=== PATIENT | female | born 1990 | race American Indian/Alaskan Native ===

== ENCOUNTER 2018-06-25 00:10 | Emergency (ER) | payer MEDICAID, OTHER, SELFPAY ==
[2018-06-25 00:22] VITALS: BP 127/84; PULSE 104; RESP 18; TEMP 36.8; O2SAT 98; BMI 28.1
[2018-06-25 00:52] LABS: Add Manual Diff / Slide Review NO; Basophils Percent Auto 0.8 % (0-2); Hemoglobin 14.7 g/dL (12.0-16.0); Lymphocytes Percent Auto 30.8 % (25-40); Mean Corpuscular HGB Conc 34.9 % (30-36); Mean Corpuscular Hemoglobin 30.5 PG (26-34); Mean Corpuscular Volume 87.4 fL (80-100); Monocytes Percent Auto 6.4 % (3-14); Neutrophils Absolute Auto 4900 /uL (3000-5900); Platelet Count 300 X10^3/uL (150-400); Red Blood Cell Count 4.81 X10^6/uL (4.0-5.2); Red Cell Distribution Width 12.3 % (11.6-14.8); White Blood Cell Count 8.2 X10^3/uL (4.5-11.0)
--- NOTE | 2018-06-25 00:56 | ED.PSYCH ---
HPI - Psych General Chief Complaint: Psychiatric Symptoms Stated Complaint: wants to be seen for mental health reasons Time Seen by Provider: 06/25/18 00:15 Source: patient Mode of arrival: ambulatory Limitations: no limitations History of Present Illness HPI Narrative: 27-year-old nonsmoking female with history of bipolar presents to the emergency department with a chief complaint being out of her Paxil for the past 5 days and forgetting to take her lamotrigine for the past 5 or 6 days as well. She states that she feels ?weird ?. She feels a bit unstable in unsteady and complains of some nausea and vague headache. She denies chest pain or shortness of breath. She denies any vomiting or diarrhea. She was diagnosed with bipolar about 1 year ago and has never missed any of her medications. She has multiple prior hospitalizations for psychiatric reasons including suicidal ideations which started at about age 12. She is currently under the care [facility] She denies any suicidal or homicidal ideations. She is able to care for herself at home. She does not have access to a firearm. She denies any new stressors at home and has been eating and sleeping without difficulty. she feels depressed and a bit out of sorts MD complaint: feels depressed Onset (ago): day(s) Duration: constant History of same: Yes Relieving factors: none Exacerbating factors: none Context: not taking psychiatric medications Associated psychiatric symptoms: depression Associated symptoms: headache and nausea Treatments prior to arrival: none Related Data Home Medications Medication Instructions Recorded Confirmed buprenorphine-naloxone [Suboxone] 1 danae SUBLINGUAL DAILY #0 08/24/17 06/25/18 ibuprofen 800 mg PO TIDP PRN #0 08/24/17 06/25/18 lamotrigine [Lamictal XR] 250 mg PO DAILY #0 08/24/17 06/25/18 multivitamin [Multiple Vitamins] 1 tab PO QDAY #0 08/24/17 06/25/18 paroxetine HCl 30 mg PO QDAY #0 08/24/17 06/25/18 cetirizine 10 mg PO DAILY 06/25/18 06/25/18 Previous Rx's Medication Instructions Recorded paroxetine HCl [Paxil] 10 mg PO DAILY #20 tab 06/25/18 Allergies Allergy/AdvReac Type Severity Reaction Status Date / Time No Known Drug Allergies Allergy Verified 06/25/18 00:39 Review of Systems Review of Systems All systems reviewed & are unremarkable except as noted in HPI and below Constitutional Denies chills, Denies fever(s), Reports headache(s), Denies lethargy and Reports weakness Eyes Denies change in vision, Denies eye discharge, Denies irritation and Denies loss of vision ENT Ears, Nose, Mouth, and Throat: Denies change in voice, Reports headache(s), Denies neck pain and Denies sore throat Cardiovascular Denies chest pain, Denies irregular heart rhythm, Denies lightheadedness, Denies palpitations, Denies dyspnea, Denies dyspnea on exertion and Denies orthopnea Respiratory Denies cough, Denies dyspnea, Denies dyspnea on exertion and Denies wheezing Gastrointestinal Gastrointestinal: Denies abdominal pain, Denies change in bowel habits, Denies diarrhea, Denies nausea and Denies vomiting Genitourinary Denies hematuria, Denies flank pain, Denies urinary incontinence and Denies urinary urgency Musculoskeletal Denies neck pain Integumentary/Breasts Denies pruritus, Denies erythema, Denies rash and Denies wounds Neurologic Denies confusion, Reports headache(s), Denies loss of vision and Reports weakness Psychiatric Denies anxiety, Reports change in appetite, Denies confusion, Reports depression, Denies homicidal ideation and Denies suicidal ideation Endocrine Denies palpitations Hematologic/Lymphatic Denies easy bruising Allergic/Immunologic Denies wheezing PFSH Medical History Bipolar 1 disorder (Acute) Social History Smoking Status: Never smoker Exam Narrative Exam Narrative: GENERAL: This is a well-nourished, well-developed patient, in mild distress. Flat affect but making good eye contact and speaking clearly without slurred words. She is well kempt HEAD: Atraumatic. Normocephalic. No temporal or scalp tenderness. EYES: Pupils equal round and reactive. Extraocular motions intact. No scleral icterus. No injection or drainage. ENT: Nose without bleeding, purulent drainage or septal hematoma. Throat without erythema, tonsillar hypertrophy or exudate. Uvula midline. Airway patent. NECK: Trachea midline. No JVD or lymphadenopathy. Supple, nontender, no meningeal signs. CARDIOVASCULAR: Regular rate and rhythm without murmurs, gallops, or rubs. RESPIRATORY: Clear to auscultation. Breath sounds equal bilaterally. No wheezes, rales, or rhonchi. GASTROINTESTINAL: Abdomen soft, non-tender, nondistended. No hepato-splenomegaly, or palpable masses. No guarding. EXTREMITIES: No clubbing, cyanosis, or edema. No joint tenderness, effusion, or edema noted. BACK: Nontender without deformity or crepitance. No flank tenderness. NEURO: AOx3. SKIN: No rash or erythema. Initial Vital Signs Initial Vital Signs: Vital Signs Temperature 98.2 F 06/25/18 00:22 Pulse Rate 104 H 06/25/18 00:22 Respiratory Rate 18 06/25/18 00:22 Blood Pressure 127/84 06/25/18 00:22 Pulse Oximetry 98 06/25/18 00:22 Course Orders Ordered: ED Orders 06/25/18 00:40 Complete Blood Count AUTO DIFF Stat Comprehensive Metabolic Panel Stat Ethanol (ETOH) Stat Thyroid Stimulating Hormone Stat 06/25/18 01:30 Urine Drug Screen, Rapid Stat Discontinued Medications Paroxetine HCl (Paxil) 20 mg PO DAILY ANY Paroxetine HCl (Paxil) 20 mg PO DAILY [facility] Last Admin: 06/25/18 01:04 Dose: 20 mg Reevaluation(s) Reevaluation #1: patient has taken both of her medications and has been observed for over an hour. She says she feels much better and has a plan to stay on her meds. She feels safe going home and denies any suicidal or homicidal ideation. She currently refuses contact with [facility], but has accepted receiving their contact info on [place] paperwork. She would prefer to follow up with her providers and will contact on tuesday. Vital Signs - 8 hr 06/25/18 00:22 06/25/18 02:22 Temperature 98.2 F Pulse Rate 104 H 89 Respiratory Rate 18 16 Blood Pressure 127/84 110/70 Pulse Oximetry 98 98 MDM - Psych Lab Data Result diagrams: 06/25/18 00:40 06/25/18 00:40 Lab Results 06/25/18 06/25/18 06/25/18 Range/Units 00:40 00:40 00:40 WBC 8.2 (4.5-11.0) X10^3/uL RBC 4.81 (4.0-5.2) X10^6/uL Hgb 14.7 (12.0-16.0) g/dL Hct 42.0 (36-46) % MCV 87.4 (80-100) fL MCH 30.5 (26-34) PG MCHC 34.9 (30-36) % RDW 12.3 (11.6-14.8) % Plt Count 300 (150-400) X10^3/uL Neut % (Auto) 60.0 (50-75) % Lymph % (Auto) 30.8 (25-40) % [place] % (Auto) 6.4 (3-14) % Eos % (Auto) 2.0 (2-4) % Baso % (Auto) 0.8 (0-2) % Neut # (Auto) 4900 (6369-3026) /uL Sodium 145 (137-145) mmol/L Potassium 3.6 (3.4-5.1) mmol/L Chloride 103 (98-107) mmol/L Carbon Dioxide 28 (22-32) mmol/L BUN 11 (7-17) mg/dL Creatinine 0.50 L (0.52-1.04) mg/dL Estimated GFR > 60.0 (>60) mL/min BUN/Creatinine Ratio 22.0 (6-22) Glucose 90 (70-100) mg/dL Calcium 9.1 (8.4-10.2) mg/dL Total Bilirubin 0.4 (0.2-1.3) mg/dL AST 23 (14-36) IU/L ALT 25 (9-52) IU/L Alkaline Phosphatase 99 (38-126) U/L Total Protein 7.9 (6.3-8.2) g/dL Albumin 4.7 (3.5-5.0) g/dL Globulin 3.2 (1.7-4.1) g/dL Albumin/Globulin Ratio 1.5 (1.0-2.8) TSH 2.38 (0.47-4.68) uIU/mL Urine Opiates Screen (Negative) Ur Oxycodone Screen (Negative) Urine Methadone Screen (Negative) Ur Barbiturates Screen (Negative) U Tricyclic Antidepress (Negative) Ur Phencyclidine Scrn (Negative) Ur Amphetamines Screen (Negative) U Methamphetamines Scrn (Negative) Ur MDMA Scrn (Ecstasy) (Negative) U Benzodiazepines Scrn (Negative) Urine Cocaine Screen (Negative) U Marijuana (THC) Screen (Negative) Ethyl Alcohol < 10 mg/dL 06/25/18 Range/Units 01:30 WBC (4.5-11.0) X10^3/uL RBC (4.0-5.2) X10^6/uL Hgb (12.0-16.0) g/dL Hct (36-46) % MCV (80-100) fL MCH (26-34) PG MCHC (30-36) % RDW (11.6-14.8) % Plt Count (150-400) X10^3/uL Neut % (Auto) (50-75) % Lymph % (Auto) (25-40) % [place] % (Auto) (3-14) % Eos % (Auto) (2-4) % Baso % (Auto) (0-2) % Neut # (Auto) (3947-6130) /uL Sodium (137-145) mmol/L Potassium (3.4-5.1) mmol/L Chloride (98-107) mmol/L Carbon Dioxide (22-32) mmol/L BUN (7-17) mg/dL Creatinine (0.52-1.04) mg/dL Estimated GFR (>60) mL/min BUN/Creatinine Ratio (6-22) Glucose (70-100) mg/dL Calcium (8.4-10.2) mg/dL Total Bilirubin (0.2-1.3) mg/dL AST (14-36) IU/L ALT (9-52) IU/L Alkaline Phosphatase (38-126) U/L Total Protein (6.3-8.2) g/dL Albumin (3.5-5.0) g/dL Globulin (1.7-4.1) g/dL Albumin/Globulin Ratio (1.0-2.8) TSH (0.47-4.68) uIU/mL Urine Opiates Screen Negative (Negative) Ur Oxycodone Screen Positive H (Negative) Urine Methadone Screen Negative (Negative) Ur Barbiturates Screen Negative (Negative) U Tricyclic Antidepress Positive H (Negative) Ur Phencyclidine Scrn Negative (Negative) Ur Amphetamines Screen Negative (Negative) U Methamphetamines Scrn Negative (Negative) Ur MDMA Scrn (Ecstasy) Negative (Negative) U Benzodiazepines Scrn Positive H (Negative) Urine Cocaine Screen Negative (Negative) U Marijuana (THC) Screen Negative (Negative) Ethyl Alcohol mg/dL Urine Dip Bedside Urine Glucose Negative Bedside Urine Bilirubin - Negative Bedside Urine Ketone +/- 5 Urine Specific [place] 1.025 Bedside Urine Occult Blood +/- Bedside Urine pH 6.0 Bedside Urine Protein +/- 15 Bedside Urine Urobilinogen - Negative Bedside Urine Nitrite - Negative Bedside Urine Leukocytes - Negative Esterase Discharge Plan Departure Patient Disposition: Home Clinical Impression: Bipolar 1 disorder, Nonadherence to medication Discharge Date/Time: 06/25/18 02:23 Interventions: ED Discharge Assessment Last Done: 06/25/18 02:22 Instructions: DI for Bipolar Disorder Activity Restrictions/Additional Instructions: *You have been diagnosed with [ bipolar disorder and medication noncompliance ] *What to do: *Take medications as directed *Follow up with yourmental health provider in 2-3 days, call for an appointment. Let them know you were seen in the Emergency Department and that we ask that you be seen in follow up *Return to ER if you should have any new, worsening or concerning symptoms *There are a few ways you may get anonymous and mental health support 1. Navigate your web browser to [email or web address] where there is a chat session available 2. Text Eduar to [phone] Prescriptions: New paroxetine HCl [Paxil] 10 mg tablet 10 mg PO DAILY Qty: 20 RF: 0 No Action paroxetine HCl 30 MG tablet 30 mg PO QDAY Qty: 0 RF: 0 lamotrigine [Lamictal XR] 200 MG tablet extended release 24hr 250 mg PO DAILY Qty: 0 RF: 0 multivitamin [Multiple Vitamins] 1 EACH tablet 1 tab PO QDAY Qty: 0 RF: 0 ibuprofen 800 MG tablet 800 mg PO TIDP PRN (Reason: Pain, Moderate) Qty: 0 RF: 0 buprenorphine-naloxone [Suboxone] 4 MG/1 MG film 1 dnaae Sublingual DAILY Qty: 0 RF: 0 cetirizine 10 mg Tablet 10 mg PO DAILY RF: 0 [facility]errals[facility] [[facility]]
[2018-06-25 01:00] LABS: Alanine Aminotransferase 25 IU/L (9-52); Albumin 4.7 g/dL (3.5-5.0); Albumin Globulin Ratio 1.5 (1.0-2.8); Alkaline Phosphatase 99 U/L (38-126); Aspartate Aminotransferase 23 IU/L (14-36); Bilirubin Total 0.4 mg/dL (0.2-1.3); Blood Urea Nitrogen 11 mg/dL (7-17); Calcium 9.1 mg/dL (8.4-10.2); Carbon Dioxide 28 mmol/L (22-32); Chloride 103 mmol/L (98-107); Estimated Glomerular Filt Rate > 60.0 mL/min (>60); Ethanol (ETOH) < 10 mg/dL; Globulin 3.2 g/dL (1.7-4.1); Glucose 90 mg/dL (70-100); HEMOLYSIS < 15 (0-50); Potassium 3.6 mmol/L (3.4-5.1); Sodium 145 mmol/L (137-145); Total Protein 7.9 g/dL (6.3-8.2)
--- NOTE | 2018-06-25 01:00 | ED_ITS ---
HPI - Psych General Chief Complaint: Psychiatric Symptoms Stated Complaint: wants to be seen for mental health reasons Time Seen by Provider: 06/25/18 00:15 Source: patient Mode of arrival: ambulatory Limitations: no limitations History of Present Illness HPI Narrative: 27-year-old nonsmoking female with history of bipolar presents to the emergency department with a chief complaint being out of her Paxil for the past 5 days and forgetting to take her lamotrigine for the past 5 or 6 days as well. She states that she feels ?weird ?. She feels a bit unstable in unsteady and complains of some nausea and vague headache. She denies chest pain or shortness of breath. She denies any vomiting or diarrhea. She was diagnosed with bipolar about 1 year ago and has never missed any of her medications. She has multiple prior hospitalizations for psychiatric reasons including suicidal ideations which started at about age 12. She is currently under the care [facility]. She denies any suicidal or homicidal ideations. She is able to care for herself at home. She does not have access to a firearm. She denies any new stressors at home and has been eating and sleeping without difficulty. she feels depressed and a bit out of sorts MD complaint: feels depressed Onset (ago): day(s) Duration: constant History of same: Yes Relieving factors: none Exacerbating factors: none Context: not taking psychiatric medications Associated psychiatric symptoms: depression Associated symptoms: headache and nausea Treatments prior to arrival: none Related Data Home Medications Medication Instructions Recorded Confirmed buprenorphine-naloxone [Suboxone] 1 danae SUBLINGUAL DAILY #0 08/24/17 06/25/18 ibuprofen 800 mg PO TIDP PRN #0 08/24/17 06/25/18 lamotrigine [Lamictal XR] 250 mg PO DAILY #0 08/24/17 06/25/18 multivitamin [Multiple Vitamins] 1 tab PO QDAY #0 08/24/17 06/25/18 paroxetine HCl 30 mg PO QDAY #0 08/24/17 06/25/18 cetirizine 10 mg PO DAILY 06/25/18 06/25/18 Previous Rx's Medication Instructions Recorded paroxetine HCl [Paxil] 10 mg PO DAILY #20 tab 06/25/18 Allergies Allergy/AdvReac Type Severity Reaction Status Date / Time No Known Drug Allergies Allergy Verified 06/25/18 00:39 Review of Systems Review of Systems All systems reviewed & are unremarkable except as noted in HPI and below Constitutional Denies chills, Denies fever(s), Reports headache(s), Denies lethargy and Reports weakness Eyes Denies change in vision, Denies eye discharge, Denies irritation and Denies loss of vision ENT Ears, Nose, Mouth, and Throat: Denies change in voice, Reports headache(s), Denies neck pain and Denies sore throat Cardiovascular Denies chest pain, Denies irregular heart rhythm, Denies lightheadedness, Denies palpitations, Denies dyspnea, Denies dyspnea on exertion and Denies orthopnea Respiratory Denies cough, Denies dyspnea, Denies dyspnea on exertion and Denies wheezing Gastrointestinal Gastrointestinal: Denies abdominal pain, Denies change in bowel habits, Denies diarrhea, Denies nausea and Denies vomiting Genitourinary Denies hematuria, Denies flank pain, Denies urinary incontinence and Denies urinary urgency Musculoskeletal Denies neck pain Integumentary/Breasts Denies pruritus, Denies erythema, Denies rash and Denies wounds Neurologic Denies confusion, Reports headache(s), Denies loss of vision and Reports weakness Psychiatric Denies anxiety, Reports change in appetite, Denies confusion, Reports depression , Denies homicidal ideation and Denies suicidal ideation Endocrine Denies palpitations Hematologic/Lymphatic Denies easy bruising Allergic/Immunologic Denies wheezing PFSH Medical History Bipolar 1 disorder (Acute) Social History Smoking Status: Never smoker Exam Narrative Exam Narrative: GENERAL: This is a well-nourished, well-developed patient, in mild distress. Flat affect but making good eye contact and speaking clearly without slurred words. She is well kempt HEAD: Atraumatic. Normocephalic. No temporal or scalp tenderness. EYES: Pupils equal round and reactive. Extraocular motions intact. No scleral icterus. No injection or drainage. ENT: Nose without bleeding, purulent drainage or septal hematoma. Throat without erythema, tonsillar hypertrophy or exudate. Uvula midline. Airway patent. NECK: Trachea midline. No JVD or lymphadenopathy. Supple, nontender, no meningeal signs. CARDIOVASCULAR: Regular rate and rhythm without murmurs, gallops, or rubs. RESPIRATORY: Clear to auscultation. Breath sounds equal bilaterally. No wheezes , rales, or rhonchi. GASTROINTESTINAL: Abdomen soft, non-tender, nondistended. No hepato-splenomegaly , or palpable masses. No guarding. EXTREMITIES: No clubbing, cyanosis, or edema. No joint tenderness, effusion, or edema noted. BACK: Nontender without deformity or crepitance. No flank tenderness. NEURO: AOx3. SKIN: No rash or erythema. Initial Vital Signs Initial Vital Signs: Vital Signs Temperature 98.2 F 06/25/18 00:22 Pulse Rate 104 H 06/25/18 00:22 Respiratory Rate 18 06/25/18 00:22 Blood Pressure 127/84 06/25/18 00:22 Pulse Oximetry 98 06/25/18 00:22 Course Orders Ordered: ED Orders 06/25/18 00:40 Complete Blood Count AUTO DIFF Stat Comprehensive Metabolic Panel Stat Ethanol (ETOH) Stat Thyroid Stimulating Hormone Stat 06/25/18 01:30 Urine Drug Screen, Rapid Stat Discontinued Medications Paroxetine HCl (Paxil) 20 mg PO DAILY ANY Paroxetine HCl (Paxil) 20 mg PO DAILY [facility] Last Admin: 06/25/18 01:04 Dose: 20 mg Reevaluation(s) Reevaluation #1: patient has taken both of her medications and has been observed for over an hour. She says she feels much better and has a plan to stay on her meds. She feels safe going home and denies any suicidal or homicidal ideation. She currently refuses contact with [facility], but has accepted receiving their contact info on [place] paperwork. She would prefer to follow up with her providers and will contact on tuesday. Vital Signs - 8 hr 06/25/18 00:22 06/25/18 02:22 Temperature 98.2 F Pulse Rate 104 H 89 Respiratory Rate 18 16 Blood Pressure 127/84 110/70 Pulse Oximetry 98 98 MDM - Psych Lab Data Result diagrams: 06/25/18 00:40 06/25/18 00:40 Lab Results 06/25/18 06/25/18 06/25/18 Range/Units 00:40 00:40 00:40 WBC 8.2 (4.5-11.0) X10^3/uL RBC 4.81 (4.0-5.2) X10^6/uL Hgb 14.7 (12.0-16.0) g/dL Hct 42.0 (36-46) % MCV 87.4 (80-100) fL MCH 30.5 (26-34) PG MCHC 34.9 (30-36) % RDW 12.3 (11.6-14.8) % Plt Count 300 (150-400) X10^3/uL Neut % (Auto) 60.0 (50-75) % Lymph % (Auto) 30.8 (25-40) % [place] % (Auto) 6.4 (3-14) % Eos % (Auto) 2.0 (2-4) % Baso % (Auto) 0.8 (0-2) % Neut # (Auto) 4900 (5533-2949) /uL Sodium 145 (137-145) mmol/L Potassium 3.6 (3.4-5.1) mmol/L Chloride 103 (98-107) mmol/L Carbon Dioxide 28 (22-32) mmol/L BUN 11 (7-17) mg/dL Creatinine 0.50 L (0.52-1.04) mg/dL Estimated GFR > 60.0 (>60) mL/min BUN/Creatinine Ratio 22.0 (6-22) Glucose 90 (70-100) mg/dL Calcium 9.1 (8.4-10.2) mg/dL Total Bilirubin 0.4 (0.2-1.3) mg/dL AST 23 (14-36) IU/L ALT 25 (9-52) IU/L Alkaline Phosphatase 99 (38-126) U/L Total Protein 7.9 (6.3-8.2) g/dL Albumin 4.7 (3.5-5.0) g/dL Globulin 3.2 (1.7-4.1) g/dL Albumin/Globulin Ratio 1.5 (1.0-2.8) TSH 2.38 (0.47-4.68) uIU/mL Urine Opiates Screen (Negative) Ur Oxycodone Screen (Negative) Urine Methadone Screen (Negative) Ur Barbiturates Screen (Negative) U Tricyclic Antidepress (Negative) Ur Phencyclidine Scrn (Negative) Ur Amphetamines Screen (Negative) U Methamphetamines Scrn (Negative) Ur MDMA Scrn (Ecstasy) (Negative) U Benzodiazepines Scrn (Negative) Urine Cocaine Screen (Negative) U Marijuana (THC) Screen (Negative) Ethyl Alcohol < 10 mg/dL 06/25/18 Range/Units 01:30 WBC (4.5-11.0) X10^3/uL RBC (4.0-5.2) X10^6/uL Hgb (12.0-16.0) g/dL Hct (36-46) % MCV (80-100) fL MCH (26-34) PG MCHC (30-36) % RDW (11.6-14.8) % Plt Count (150-400) X10^3/uL Neut % (Auto) (50-75) % Lymph % (Auto) (25-40) % [place] % (Auto) (3-14) % Eos % (Auto) (2-4) % Baso % (Auto) (0-2) % Neut # (Auto) (1835-2494) /uL Sodium (137-145) mmol/L Potassium (3.4-5.1) mmol/L Chloride (98-107) mmol/L Carbon Dioxide (22-32) mmol/L BUN (7-17) mg/dL Creatinine (0.52-1.04) mg/dL Estimated GFR (>60) mL/min BUN/Creatinine Ratio (6-22) Glucose (70-100) mg/dL Calcium (8.4-10.2) mg/dL Total Bilirubin (0.2-1.3) mg/dL AST (14-36) IU/L ALT (9-52) IU/L Alkaline Phosphatase (38-126) U/L Total Protein (6.3-8.2) g/dL Albumin (3.5-5.0) g/dL Globulin (1.7-4.1) g/dL Albumin/Globulin Ratio (1.0-2.8) TSH (0.47-4.68) uIU/mL Urine Opiates Screen Negative (Negative) Ur Oxycodone Screen Positive H (Negative) Urine Methadone Screen Negative (Negative) Ur Barbiturates Screen Negative (Negative) U Tricyclic Antidepress Positive H (Negative) Ur Phencyclidine Scrn Negative (Negative) Ur Amphetamines Screen Negative (Negative) U Methamphetamines Scrn Negative (Negative) Ur MDMA Scrn (Ecstasy) Negative (Negative) U Benzodiazepines Scrn Positive H (Negative) Urine Cocaine Screen Negative (Negative) U Marijuana (THC) Screen Negative (Negative) Ethyl Alcohol mg/dL Urine Dip Bedside Urine Glucose Negative Bedside Urine Bilirubin - Negative Bedside Urine Ketone +/- 5 Urine Specific [place] 1.025 Bedside Urine Occult Blood +/- Bedside Urine pH 6.0 Bedside Urine Protein +/- 15 Bedside Urine Urobilinogen - Negative Bedside Urine Nitrite - Negative Bedside Urine Leukocytes - Negative Esterase Discharge Plan Departure Patient Disposition: Home Clinical Impression: Bipolar 1 disorder, Nonadherence to medication Discharge Date/Time: 06/25/18 02:23 Interventions: ED Discharge Assessment Last Done: 06/25/18 02:22 Instructions: DI for Bipolar Disorder Activity Restrictions/Additional Instructions: *You have been diagnosed with [ bipolar disorder and medication noncompliance ] *What to do: *Take medications as directed *Follow up with yourmental health provider in 2-3 days, call for an appointment. Let them know you were seen in the Emergency Department and that we ask that you be seen in follow up *Return to ER if you should have any new, worsening or concerning symptoms *There are a few ways you may get anonymous and mental health support 1. Navigate your web browser to [email or web address] where there is a chat session available 2. Text Eduar to [phone] Prescriptions: New paroxetine HCl [Paxil] 10 mg tablet 10 mg PO DAILY Qty: 20 RF: 0 No Action paroxetine HCl 30 MG tablet 30 mg PO QDAY Qty: 0 RF: 0 lamotrigine [Lamictal XR] 200 MG tablet extended release 24hr 250 mg PO DAILY Qty: 0 RF: 0 multivitamin [Multiple Vitamins] 1 EACH tablet 1 tab PO QDAY Qty: 0 RF: 0 ibuprofen 800 MG tablet 800 mg PO TIDP PRN (Reason: Pain, Moderate) Qty: 0 RF: 0 buprenorphine-naloxone [Suboxone] 4 MG/1 MG film 1 danae Sublingual DAILY Qty: 0 RF: 0 cetirizine 10 mg Tablet 10 mg PO DAILY RF: 0 [facility]errals: [facility] [[facility]]
[2018-06-25] MEDS: PARoxetine 20 MG TABLET PO (01:04)
[2018-06-25 01:47] LABS: Thyroid Stimulating Hormone 2.38 uIU/mL (0.47-4.68)
[2018-06-25 01:58] LABS: Urine Amphetamines Negative (Negative); Urine Barbiturates Negative (Negative); Urine Benzodiazepines Positive (Negative); Urine Cocaine Negative (Negative); Urine MDMA Negative (Negative); Urine Methamphetamines Negative (Negative); Urine Morphine/Opi cutoff 2000 Negative (Negative); Urine Phencyclidine Negative (Negative); Urine Tetrahydrocannabinol Negative (Negative)
[2018-06-25 01:59] LABS: Urine Methadone Negative (Negative); Urine Oxycodone Positive (Negative); Urine Tricyclic Antidepressant Positive (Negative)
[2018-06-25 02:22] VITALS: BP 110/70; PULSE 89; RESP 16; O2SAT 98
== END 2018-06-25 02:23 | disposition home or self-care (01) ==
PROVIDERS: Emergency Provider Emergency Medicine
DX: F31.9 Bipolar disorder, unspecified (principal); Z91.14 Patient's other noncompliance with medication regimen
CPT/HCPCS: 36415; 80053; 80305; 80320; 81003; 84443; 85025; 99283

== ENCOUNTER 2021-12-22 10:25 | Observation (INO) | payer MEDICAID, OTHER, SELFPAY ==
[2021-12-22] VITALS (9 sets, daily range): BP systolic 109–120; BP diastolic 58–69; PULSE 77–108; RESP 10–18; TEMP 36.2–37.2; O2SAT 96–100; BMI 52.0
--- NOTE | 2021-12-22 10:37 | DI.CT.S_ITS ---
PROCEDURE: CT SOFT TISSUE NECK W CON INDICATIONS: pain, swelling, cannot swallow due to obstruction, septic TECHNIQUE: After the administration of intravenous contrast, 3.0 mm axial sections acquired from the sella to the aortic arch. Additional oblique axial 3.0 mm sections acquired through the pharynx. 3 mm thick coronal and sagittal reformats were generated. For radiation dose reduction, the following was used: automated exposure control. COMPARISON: None. FINDINGS: Image quality: Excellent. Lymph nodes: Bilateral moderately enlarged cervical lymph nodes are seen, including a right level 2A lymph node that measures 19 x 15 mm and a left level 2A lymph node that measures 17 x 12 mm. Vessels: Visualized vasculature appears patent. Neck spaces: At the tongue base, generous lingual tonsillar tissue can be seen, with mild mass effect upon the epiglottis. No soft tissue abscess can be seen. The oropharynx, nasopharynx, and pharynx demonstrate no mucosal lesions. The vocal cords, false vocal cords, pyriform sinuses, and epiglottis all appear normal. Extramucosal spaces appear unremarkable. Glands: The parotid and submandibular glands appear normal. Thyroid gland demonstrates no significant abnormality. Miscellaneous: Visualized brain and orbits appear normal. Lung apices appear clear. Superficial soft tissues appear normal. Bones: No suspicious bony lesions. Visualized sinuses and mastoids appear unremarkable. IMPRESSION: Generous lingual tonsillar tissue can be seen, with mild mass effect upon the epiglottis. No soft tissue abscess is seen. Moderately enlarged bilateral cervical lymph nodes are seen, which are presumed to be reactive. Dictated by: Melvin Keller M.D. on 12/22/2021 at 10:03 Approved by: Melvin Keller M.D. on 12/22/2021 at 10:05
--- NOTE | 2021-12-22 10:40 | ED_ITS ---
HPI - Sepsis General Chief Complaint: Upper Respiratory Symptoms Evaluation Narrative: 31-year-old female nonsmoker with history of substance abuse and mental health diagnoses presents with significant other and a chief complaint of 24 hours of subjective fever, shaking chills, body aches severe throat pain and difficulty swallowing. She states that her difficulties not only due to pain but she feels like there is swelling blocking things from going down. She denies any recent visits her antibiotic use. She has had no chest pain or shortness of breath. She denies nausea, vomiting or diarrhea. She denies chance of stating her recent menstrual period was 3-4 days ago. Patient History Medical History Bipolar 1 disorder Social History Smoking Status: Never smoker Smoking Status: Never smoker alcohol intake frequency: 0-2 drinks per day Substance Use Type: does not use Exam Narrative Exam Narrative: GENERAL: [31 year old patient appears stated age. Well-developed patient, in moderate distress, holding an emesis bag, some difficulty with secretions which she continues to spit up. Voice is muffled HEAD: Atraumatic. Normocephalic. EYES: Pupils equal round and reactive. Extraocular motions intact. No scleral icterus. No injection or drainage. ENT: Nose without bleeding, purulent drainage. Throat with erythema, significant postnasal drip, edematous uvula and soft palate, no pointing of the uvula or obvious peritonsillar abscess, no drainage Airway patent. NECK: Trachea midline. Non tender, no significant lymphadenopathy CARDIOVASCULAR: Regular rate and rhythm without murmurs, gallops, or rubs. RESPIRATORY: Clear to auscultation. Breath sounds equal bilaterally. No wheezes, rales, or rhonchi. GASTROINTESTINAL: Abdomen soft, non-tender, nondistended. EXTREMITIES: No edema or joint tenderness. BACK: Nontender without deformity or crepitance. No flank tenderness. NEURO: AOx3. SKIN: No rash or erythema of visible areas Initial Vital Signs Initial Vital Signs: Vital Signs Temperature 98.0 F 12/22/21 10:25 Pulse Rate 108 H 12/22/21 10:25 Respiratory Rate 18 12/22/21 10:25 Blood Pressure 120/59 L 12/22/21 10:25 Pulse Oximetry 100 04/26/22 10:25 Course Orders Ordered: ED Orders 12/22/21 10:37 CT soft tissue neck w con Stat 12/22/21 10:38 Blood Culture Stat 12/22/21 10:40 Beta HCG, Quant [HCG Quantitative /Beta subunit] Stat Complete Blood Count AUTO DIFF Stat Comprehensive Metabolic Panel Stat Lactate (Lactic Acid) Stat Strep Grp A by PCR Rapid Stat Throat Culture Stat 12/22/21 11:00 COVID19 -Nasal RAPID/Pre-Proc Stat 12/22/21 11:40 Monotest Stat Discontinued Medications Dexamethasone (Dexamethasone 10 Mg/Ml Vial) 10 mg IV NOW ONE Stop: 12/22/21 10:38 Last Admin: 12/22/21 10:57 Dose: 10 mg Documented by: SINAONER Sodium Chloride (Normal Saline 0.9%) 1,000 mls @ 1,000 mls/hr IV BOLUS ONE Stop: 12/22/21 11:36 Last Admin: 12/22/21 10:56 Dose: 1,000 mls/hr Documented by: SINAONER Ampicillin Sodium/Sulbactam (Sodium 3 gm/ Sodium Chloride) 100 mls @ 100 mls/hr IV NOW ONE Stop: 12/22/21 10:38 Last Infusion: 12/22/21 12:10 Dose: 0 mls/hr Documented by: Admin: 12/22/21 10:58 Dose: 100 mls/hr Documented by: SINAONESilvia Ketorolac Tromethamine (Ketorolac 30 Mg/Ml Vial) 15 mg IV NOW ONE Stop: 12/22/21 10:38 Last Admin: 12/22/21 10:57 Dose: 15 mg Documented by: SINAONESilvia Consultations Consultation #1: discussed with ENT (Ruddy). Agrees with plan, happy to be involved if hospitalist wishes to put in an official consult Consultation #2: hospitalist happy to accept Vital Signs Vital signs: Vital Signs - 8 hr 12/22/21 10:25 12/22/21 10:39 12/22/21 11:00 Temperature 98.0 F Pulse Rate 108 H 100 H 97 H Respiratory Rate 18 16 Blood Pressure 120/59 L Pulse Oximetry 100 100 100 Sepsis Guideline Criteria Treatment Initiated Antibiotics:: IV antimicrobials will be initiated as soon as possible after recognition of sepsis state and within one hour for both sepsis and septic shock. MDM - Sepsis Lab Data Result diagrams: 12/22/21 10:40 12/22/21 10:40 Labs: Lab Results 12/22/21 12/22/21 12/22/21 Range/Units 10:40 10:40 10:40 WBC 9.8 (4.5-11.0) X10^3/uL RBC 4.43 (4.0-5.2) X10^6/uL Hgb 13.4 (12.0-16.0) g/dL Hct 39.3 (36-46) % MCV 88.8 (80-100) fL MCH 30.2 (26-34) PG MCHC 34.0 (30-36) % RDW 12.2 (11.6-14.8) % Plt Count 254 (150-400) X10^3/uL Neut % (Auto) 75.2 H (50-75) % Lymph % (Auto) 13.4 L (25-40) % Robeson % (Auto) 9.4 (3-14) % Eos % (Auto) 1.5 L (2-4) % Baso % (Auto) 0.5 (0-2) % Neut # (Auto) 7400 H (0755-9278) /uL Lymph # (Auto) 1300 (8699-8453) /uL Robeson # (Auto) 900 (0-900) /uL Eos # (Auto) 100 (0-450) /uL Baso # (Auto) 100 (0-100) /uL Sodium 138 (137-145) mmol/L Potassium 3.7 (3.4-5.1) mmol/L Chloride 103 (98-107) mmol/L Carbon Dioxide 30 (22-32) mmol/L BUN 7 (7-17) mg/dL Creatinine 0.52 (0.52-1.04) mg/dL Estimated GFR > 60 (>60) mL/min BUN/Creatinine Ratio 13.5 (6-22) Glucose 92 (70-100) mg/dL Lactate (0.7-2.1) mmol/L Calcium 8.5 (8.4-10.2) mg/dL Total Bilirubin 0.5 (0.2-1.3) mg/dL AST 24 (14-36) IU/L ALT 17 (<35) IU/L Alkaline Phosphatase 85 (38-126) U/L Total Protein 7.5 (6.3-8.2) g/dL Albumin 4.2 (3.5-5.0) g/dL Globulin 3.3 (1.7-4.1) g/dL Albumin/Globulin Ratio 1.3 (1.0-2.8) HCG, Quant < 2.4 mIU/mL SARS-CoV-2 (PCR) (Negative) Monoscreen (Negative) Group A Strep (PCR) (Negative) Group B Strep (PCR) 12/22/21 12/22/21 12/22/21 Range/Units 10:40 10:40 11:00 WBC (4.5-11.0) X10^3/uL RBC (4.0-5.2) X10^6/uL Hgb (12.0-16.0) g/dL Hct (36-46) % MCV (80-100) fL MCH (26-34) PG MCHC (30-36) % RDW (11.6-14.8) % Plt Count (150-400) X10^3/uL Neut % (Auto) (50-75) % Lymph % (Auto) (25-40) % Robeson % (Auto) (3-14) % Eos % (Auto) (2-4) % Baso % (Auto) (0-2) % Neut # (Auto) (8161-0841) /uL Lymph # (Auto) (0991-7014) /uL Robeson # (Auto) (0-900) /uL Eos # (Auto) (0-450) /uL Baso # (Auto) (0-100) /uL Sodium (137-145) mmol/L Potassium (3.4-5.1) mmol/L Chloride (98-107) mmol/L Carbon Dioxide (22-32) mmol/L BUN (7-17) mg/dL Creatinine (0.52-1.04) mg/dL Estimated GFR (>60) mL/min BUN/Creatinine Ratio (6-22) Glucose (70-100) mg/dL Lactate < 0.5 L (0.7-2.1) mmol/L Calcium (8.4-10.2) mg/dL Total Bilirubin (0.2-1.3) mg/dL AST (14-36) IU/L ALT (<35) IU/L Alkaline Phosphatase (38-126) U/L Total Protein (6.3-8.2) g/dL Albumin (3.5-5.0) g/dL Globulin (1.7-4.1) g/dL Albumin/Globulin Ratio (1.0-2.8) HCG, Quant mIU/mL SARS-CoV-2 (PCR) Negative (Negative) Monoscreen (Negative) Group A Strep (PCR) Positive H (Negative) Group B Strep (PCR) Cancelled 12/22/21 Range/Units 11:40 WBC (4.5-11.0) X10^3/uL RBC (4.0-5.2) X10^6/uL Hgb (12.0-16.0) g/dL Hct (36-46) % MCV (80-100) fL MCH (26-34) PG MCHC (30-36) % RDW (11.6-14.8) % Plt Count (150-400) X10^3/uL Neut % (Auto) (50-75) % Lymph % (Auto) (25-40) % Robeson % (Auto) (3-14) % Eos % (Auto) (2-4) % Baso % (Auto) (0-2) % Neut # (Auto) (1363-7572) /uL Lymph # (Auto) (5427-0182) /uL Robeson # (Auto) (0-900) /uL Eos # (Auto) (0-450) /uL Baso # (Auto) (0-100) /uL Sodium (137-145) mmol/L Potassium (3.4-5.1) mmol/L Chloride (98-107) mmol/L Carbon Dioxide (22-32) mmol/L BUN (7-17) mg/dL Creatinine (0.52-1.04) mg/dL Estimated GFR (>60) mL/min BUN/Creatinine Ratio (6-22) Glucose (70-100) mg/dL Lactate (0.7-2.1) mmol/L Calcium (8.4-10.2) mg/dL Total Bilirubin (0.2-1.3) mg/dL AST (14-36) IU/L ALT (<35) IU/L Alkaline Phosphatase (38-126) U/L Total Protein (6.3-8.2) g/dL Albumin (3.5-5.0) g/dL Globulin (1.7-4.1) g/dL Albumin/Globulin Ratio (1.0-2.8) HCG, Quant mIU/mL SARS-CoV-2 (PCR) (Negative) Monoscreen Negative (Negative) Group A Strep (PCR) (Negative) Group B Strep (PCR) Imaging Data CT Soft Tissue Neck: Radiologist's Impression: 39 Francesco Mason, [facility] Routine Call Back Main ED ?11? My List ?12? Waiting ?1? Surge ED ?0? R02? Suraj? Matty? 31 F? With Doctor? 44m? 2-Emergent? ?? Upper Respiratory Symptoms? Can't swallow, body aches? C19S/S? 12/22/21 10:37? REG ER? Draft? Francesco Kellyon H + group A strep Order BP 120/59 Pulse 108 Resp 18 Temp 98.0 F O2 Sat 100% (RA) ?Complete B... ?Strep Grp ... Imaging MAR COVID19 -N... Chem HCG Quanti... Lactate (L... Microbiolo... POC/ABA Strep Grp ... R04? Soliz? Chai? 89 M? With Doctor? 3h 12m? 3-Urgent? ?? Fever? Shakes, night sweats, slight fever x3 days? ISO? 12/22/21 07:58? REG ER? Draft? Francesco Waldropi T ? Order BP Pulse 71 Resp 37 Temp O2 Sat 94% ?Procalcito... ?Complete B... ?Chem ?Troponin &... Imaging COVID19 -N... EKG-12 Yael... Cardiac mo... Lactate (L... Urinalysis... Microbiolo... POC/ABA Troponin &... D Dimer St... R05? Pollard? Edi? 1y 1m M? With Doctor? 1h 1m? 3-Urgent? ?? Skin/Abscess/Foreign Body? rash on body,swollen both legs and stomache? ISO? 12/22/21 10:11? REG ER? Draft? Francesco Madison Renea T Order BP Pulse 116 Resp Temp 99.9 F O2 Sat 100% (RA) Chem C-Reactive... GI Panel (... Respirator... Complete B... Procalcito... R06? Tottenham? Clay? 83 M? With Doctor? 4h 29m? 3-Urgent? ?? Fall? Fell and having knee/back pain. spitting blood? ?? 12/22/21 06:51? REG ER? Draft? Francesco Horvath ? Order BP 97/46 Pulse 83 Resp 18 Temp 97.9 F O2 Sat 90% (RA) ?Complete B... ?Chem Lactate (L... Procalcito... Troponin &... ?D Dimer St... ?NT-proBNP ... COVID19 -N... Imaging MAR EKG-12 Yael... Cardiac mo... Urinalysis... Microbiolo... POC/ABA R07? Lito? Kaijsa? 40 F? With Doctor? 57m? 3-Urgent? ?? Vaginal Bleeding? Heavy menstrual bleeding? ?? 12/22/21 10:19? REG ER? Draft? Francesco Fish R dbl dip pee Order BP 138/78 Pulse 90 Resp 18 Temp 97.4 F O2 Sat 99% (RA) Complete B... HCG Quanti... Chem Type and S... Imaging POC/ABA R08? Ramiro? Unique? 80 F? With Doctor? 19m? 3-Urgent? ?? Upper Respiratory Symptoms? Tightness in chest, trouble breathing? ISO, C19S/S? 12/22/21 10:54? REG ER? Draft? Francesco Mason ekg/chest x ray/ covid Order BP 178/77 Pulse 75 Resp 20 Temp 98.4 F O2 Sat 98% (RA) EKG-12 Yael... COVID19 -N... Imaging R10? Oh? Jelani? 23 M? With Doctor? 5h 54m? 3-Urgent? VC: 1? Abdominal Pain? rt side stomach pain? Sign Out? 12/22/21 05:18? REG ER? Draft? Francesco Horvath pain control? oral challenge? MARYBETH 1028 Order BP 111/56 Pulse 85 Resp Temp O2 Sat 93% ?Complete B... ?Chem Lipase Sta... Imaging Lactate (L... MAR Cardiac mo... POC/ABA Urine Drug... R11? Mittal? Chelsey? 70 F? With Doctor? 1h 39m? 3-Urgent? ?? Upper Respiratory Symptoms? Cough, SOB, chills, weakness? C19S/S? 12/22/21 09:41? REG ER? Draft? Francesco Duncan Yuliet Goes by Shilpa burdick Order BP Pulse 69 Resp Temp O2 Sat 96% Imaging R12? Addy? Tiffanie? 36 F? With Doctor? 54m? 3-Urgent? ?? Abdominal Pain? Lower abd pain x 9 days? ?? 12/22/21 10:42? REG ER? Draft? Francesco Duncan Yuliet Order BP 144/79 Pulse 104 Resp 24 Temp 97.9 F O2 Sat 98% (RA) ?Urinalysis... MAR ... Complete B... Chem Lactate (L... R13? Szymanski? Greg? 16 M? Boarding? 20h 30m? 2-Emergent? ?? Psychiatric Symptoms? intentional cutting? SA, ?, Sign Out? 12/21/21 14:55? REG ER? Draft? Francesco Hernadez [facility] records in chart 1:1 They/Them Voluntary [place] - no beds 12/22 [address] - Faxed packet [address] declined due to medical acuity/lacerations :( 1999 Carly Wilson reviewing patient for 12/23 :( Order BP 116/56 Pulse 76 Resp Temp O2 Sat 96% (RA) Acetaminop... ?Complete B... Ethanol (E... Urine Drug... ?Chem Free T4, D... Salicylate... Thyroid St... POC/ABA COVID19 -N... Imaging MAR Consult to... General (R... Margaret? Ruddy? Francesco? 29 M? With Doctor? 36m? ?? VC: 1? No Chief Complaint? Urogenital pain? ?? 12/22/21 10:54? REG ER? No Document? Francesco burdick Order Imaging - CT soft tissue neck w con Matty Ruelas??31??F??1990 ? Allergy/Adv: No Known Drug Allergies (More??) Close Imaging ACTIVITY DATE EXAM STATUS AUTHOR 12/22/21 10:[address] Signed Melvin Keller Imaging Reports Close Soft Tissue Neck CT (Signed) Melvin Keller - 12/22/21 Launch?[place] [address] CT Scan Report Signed Patient: Matty Ruelas MR#: [id number] : 1990 Acct:[id number] Age/Sex: 31 / F Date of Service: 12/22/21 Loc: ED Accession Number: [id number] ?? Procedure: CT soft tissue neck w con Ordering Provider: Francesco Mason D.O. PROCEDURE:? CT SOFT TISSUE NECK W CON ? INDICATIONS:? pain, swelling, cannot swallow due to obstruction, septic ? TECHNIQUE:? After the administration of intravenous contrast, 3.0 mm axial sections acquired from the sella to the aortic arch.? Additional oblique axial 3.0 mm sections acquired through the pharynx.? 3 mm thick coronal and sagittal reformats were generated.? For radiation dose reduction, the following was used:? automated exposure control.? ? COMPARISON:? None. ? FINDINGS:? Image quality:? Excellent.? ? Lymph nodes:? Bilateral moderately enlarged cervical lymph nodes are seen, including a right level 2A lymph node that measures 19 x 15 mm and a left level 2A lymph node that measures 17 x 12 mm. ? Vessels:? Visualized vasculature appears patent.? ? Neck spaces:? At the tongue base, generous lingual tonsillar tissue can be seen, with mild mass effect upon the epiglottis.? ? No soft tissue abscess can be seen. ? The oropharynx, nasopharynx, and pharynx demonstrate no mucosal lesions.? The vocal cords, false vocal cords, pyriform sinuses, and epiglottis all appear normal.? Extramucosal spaces appear unremarkable.? ? Glands:? The parotid and submandibular glands appear normal.? Thyroid gland demonstrates no significant abnormality.? ? Miscellaneous:? Visualized brain and orbits appear normal.? Lung apices appear clear.? Superficial soft tissues appear normal. ? Bones:? No suspicious bony lesions.? Visualized sinuses and mastoids appear unremarkable. ? ? IMPRESSION:? Generous lingual tonsillar tissue can be seen, with mild mass eff ect upon the epiglottis. ? No soft tissue abscess is seen. ? Moderately enlarged bilateral cervical lymph nodes are seen, which are presumed to be reactive. ? ? ? Dictated by: Melvin Keller M.D. on 12/22/2021 at 10:03 ? ? Approved by: Melvin Keller M.D. on 12/22/2021 at 10:05 ? MDM Narrative Medical decision making narrative: patient with sore throat, voice change, and trouble controlling secretions. No difficulty with airway. Slightly improved after above-stated therapies but certainly in appropriate for discharge at this time, she is unable to swallow foods or pills. ENT has been consulted and agree there is no need for there direct involvement at this time. Patient hospitalized for further evaluation treatment Discharge Plan Departure Patient Disposition: Admitted as Observation Clinical Impression: Edema of pharynx, Strep pharyngitis Admit Date/Time: 12/22/21 12:02 Admit Provider: Nimesh Smiley
[2021-12-22] MEDS: SODIUM CHLORIDE 0.9% 1,000 ML 1000 ML IV (10:56)
[2021-12-22] MEDS: DEXAMETHASONE 10 MG/ML VIAL IV (10:57)
[2021-12-22] MEDS: KETOROLAC 30 MG/ML VIAL 15 MG IV (10:57)
[2021-12-22] MEDS: AMPICILLIN/SULBACTAM 3 GM 3 GM in SODIUM CHLORIDE 0.9% 100 ML IV ×3 (10:58→21:10)
[2021-12-22 10:59] LABS: Add Manual Diff / Slide Review NO; Basophils Absolute Auto 100 /uL (0-100); Basophils Percent Auto 0.5 % (0-2); Eosinophils Absolute Auto 100 /uL (0-450); Eosinophils Percent Auto 1.5 % (2-4); Hematocrit 39.3 % (36-46); Hemoglobin 13.4 g/dL (12.0-16.0); Lymphocytes Absolute Auto 1300 /uL (1100-4500); Lymphocytes Percent Auto 13.4 % (25-40); Mean Corpuscular Hemoglobin 30.2 PG (26-34); Mean Corpuscular Volume 88.8 fL (80-100); Monocytes Absolute Auto 900 /uL (0-900); Monocytes Percent Auto 9.4 % (3-14); Neutrophils Absolute Auto 7400 /uL (1500-7000); Neutrophils Percent Auto 75.2 % (50-75); Platelet Count 254 X10^3/uL (150-400); Red Blood Cell Count 4.43 X10^6/uL (4.0-5.2); Red Cell Distribution Width 12.2 % (11.6-14.8); White Blood Cell Count 9.8 X10^3/uL (4.5-11.0)
[2021-12-22 11:02] LABS: Strep Grp A by PCR Rapid Positive (Negative)
[2021-12-22 11:18] LABS: Alanine Aminotransferase 17 IU/L (<35); Albumin 4.2 g/dL (3.5-5.0); Albumin Globulin Ratio 1.3 (1.0-2.8); Alkaline Phosphatase 85 U/L (38-126); Aspartate Aminotransferase 24 IU/L (14-36); BUN Creatinine Ratio 13.5 (6-22); Bilirubin Total 0.5 mg/dL (0.2-1.3); Blood Urea Nitrogen 7 mg/dL (7-17); Calcium 8.5 mg/dL (8.4-10.2); Carbon Dioxide 30 mmol/L (22-32); Chloride 103 mmol/L (98-107); Estimated Glomerular Filt Rate > 60 mL/min (>60); Globulin 3.3 g/dL (1.7-4.1); Glucose 92 mg/dL (70-100); HEMOLYSIS < 15 (0-50); Potassium 3.7 mmol/L (3.4-5.1); Sodium 138 mmol/L (137-145); Total Protein 7.5 g/dL (6.3-8.2)
[2021-12-22 11:33] LABS: Lactate (Lactic Acid) < 0.5 mmol/L (0.7-2.1)
[2021-12-22 11:35] LABS: COVID19 -Nasal RAPID Negative (Negative)
[2021-12-22 11:38] LABS: HCG Quantitative /Beta subunit < 2.4 mIU/mL
[2021-12-22 11:52] LABS: Monotest Negative (Negative)
--- NOTE | 2021-12-22 12:05 | PC.NURSE ---
Patient sleeping. Resp even and unlabored.
[2021-12-22] MEDS: SODIUM CHLORIDE 0.9% 1,000 ML 100 ML IV (16:10)
--- NOTE | 2021-12-22 16:57 | PM.HP.1 ---
History of Present Illness History of Present Illness Chief complaint: Can't swallow, body aches Narrative: This is a 31-year-old female with a past medical history of substance abuse on Suboxone, possible bipolar disorder but not apparently on medications who presented with 1-2 days of fever, shaking chills, body aches and severe throat pain with difficulty swallowing, progressively worsening over the past day. She denies any nausea, or vomiting. She has no abdominal pain, dysuria, or urinary frequency. She does endorse of prior history of strep pharyngitis and had a tonsillectomy for recurrent infection along time ago. She denies any shortness of breath but has so much difficulty swallowing. In the emergency room, the patient's vital signs were unremarkable. CT scan was performed which showed generous lingual tonsillar tissue with mild mass effect on the epiglottis without any soft tissue abscess seen. There is also enlarged bilateral cervical lymphadenopathy. ENT was consulted who recommended Unasyn and steroid therapy for her swelling and observation, they would be happy to consult if surgical management is needed. Upon arrival to the hospital for the patient is feeling slightly better after doses of antibiotic and steroid in the emergency room. Rapid strep test was positive, mono testing was negative. COVID-19 testing was negative. Patient History Medical History Bipolar 1 disorder Surgical History History of tonsillectomy Family & Social History Family history unavailable: Yes (patient endorsed not knowing any medical history in her mother or father.) Social History: household members family Prior Living Arrangements Apartment/Condo Safety & Behavioral: Feels Safe in Current Yes Environment Been Physically Hurt or No Threatened By a Person Suicidal Ideation Description None Suicide Plan Description No Plan Tobacco & Substance use: Smoking Status Never smoker alcohol intake never alcohol intake frequency 0-2 drinks per day Substance Use Type does not use Meds Home Medications and Allergies Home Medications Medication Instructions Recorded Confirmed Type buprenorphine 4 mg-naloxone 1 mg 1 danae SUBLINGUAL DAILY #0 08/24/17 06/25/18 History sublingual film (Suboxone) ibuprofen 800 mg tablet 800 mg PO TIDP PRN #0 08/24/17 06/25/18 History lamotrigine 200 mg tablet,extended 250 mg PO DAILY #0 08/24/17 06/25/18 History release 24 hr (Lamictal XR) multivitamin (Multiple Vitamins) 1 tab PO QDAY #0 08/24/17 06/25/18 History paroxetine HCl 30 mg tablet 30 mg PO QDAY #0 08/24/17 06/25/18 History cetirizine 10 mg tablet 10 mg PO DAILY 06/25/18 06/25/18 History paroxetine HCl 10 mg tablet (Paxil) 10 mg PO DAILY #20 tab 06/25/18 Rx Allergies Allergy/AdvReac Type Severity Reaction Status Date / Time No Known Drug Allergies Allergy Verified 06/25/18 00:39 Review of Systems Review of Systems Narrative: All other systems reviewed with the patient and are negative unless otherwise stated. Exam Vital Signs (past 8 hours): - 12/22/21 10:25 12/22/21 10:39 12/22/21 11:00 Temperature 98.0 F Pulse Rate 108 H 100 H 97 H Respiratory Rate 18 16 Blood Pressure 120/59 L Pulse Oximetry 100 100 100 12/22/21 12:38 12/22/21 13:00 12/22/21 14:42 Temperature 98.9 F Pulse Rate 96 H 93 H Respiratory Rate 16 16 Blood Pressure 116/69 Pulse Oximetry 99 99 96 12/22/21 16:13 Temperature 98.1 F Pulse Rate 77 Respiratory Rate 10 L Blood Pressure 109/58 L Pulse Oximetry 99 Oxygen Delivery Method Room Air Oxygen Flow Rate 0 Narrative Exam Narrative: General:? Patient is well developed and well nourished, in no distress at this time. HEENT:? Normocephalic, atraumatic, extraocular muscles intact, oral pharynx is clear and mucous membranes are moist. Posterior pharynx with erythema, no tonsils visualized. Neck: supple and symmetric, trachea is midline, + cervical lymphadenopathy, tender more prominent on the L. Chest:? Normal AP diameter and contour without kyphoscoliosis, no tachypnea, equal chest rise bilaterally. Lungs:? CTA b/l no wheezing rhonchi or rales. Cardio:?RRR no m/r/g. Abdomen: S NT ND. No CVA tenderness. Musculoskeletal:? Muscle strength and tone are equal within normal limits, no deformity. Extremities: No edema or joint effusions. No cyanosis or clubbing. Skin:? Pale,? Warm to touch,dry and intact without rashes, ulcerations or petechiae.? Neuro:? Alert and orientated x3,? sensation to touch intact in all extremities, no gross deficits noted of cranial nerves. Psych:? Patient has a well-kept appearance, appropriate affect, mental status attitude thought context and judgment are appropriate for age. Objective Labs Result Diagrams: 12/22/21 10:40 12/22/21 10:40 Labs: Laboratory Results - last 24 hr 12/22/21 12/22/21 12/22/21 10:40 10:40 10:40 WBC 9.8 RBC 4.43 Hgb 13.4 Hct 39.3 MCV 88.8 MCH 30.2 MCHC 34.0 RDW 12.2 Plt Count 254 Neut % (Auto) 75.2 H Lymph % (Auto) 13.4 L Valencia % (Auto) 9.4 Eos % (Auto) 1.5 L Baso % (Auto) 0.5 Neut # (Auto) 7400 H Lymph # (Auto) 1300 [place] # (Auto) 900 Eos # (Auto) 100 Baso # (Auto) 100 Sodium 138 Potassium 3.7 Chloride 103 Carbon Dioxide 30 BUN 7 Creatinine 0.52 Estimated GFR > 60 BUN/Creatinine Ratio 13.5 Glucose 92 Lactate Calcium 8.5 Total Bilirubin 0.5 AST 24 ALT 17 Alkaline Phosphatase 85 Total Protein 7.5 Albumin 4.2 Globulin 3.3 Albumin/Globulin Ratio 1.3 HCG, Quant < 2.4 SARS-CoV-2 (PCR) Monoscreen Group A Strep (PCR) Group B Strep (PCR) 12/22/21 12/22/21 12/22/21 10:40 10:40 11:00 WBC RBC Hgb Hct MCV MCH MCHC RDW Plt Count Neut % (Auto) Lymph % (Auto) Valencia % (Auto) Eos % (Auto) Baso % (Auto) Neut # (Auto) Lymph # (Auto) [place] # (Auto) Eos # (Auto) Baso # (Auto) Sodium Potassium Chloride Carbon Dioxide BUN Creatinine Estimated GFR BUN/Creatinine Ratio Glucose Lactate < 0.5 L Calcium Total Bilirubin AST ALT Alkaline Phosphatase Total Protein Albumin Globulin Albumin/Globulin Ratio HCG, Quant SARS-CoV-2 (PCR) Negative Monoscreen Group A Strep (PCR) Positive H Group B Strep (PCR) Cancelled 12/22/21 11:40 WBC RBC Hgb Hct MCV MCH MCHC RDW Plt Count Neut % (Auto) Lymph % (Auto) Valencia % (Auto) Eos % (Auto) Baso % (Auto) Neut # (Auto) Lymph # (Auto) [place] # (Auto) Eos # (Auto) Baso # (Auto) Sodium Potassium Chloride Carbon Dioxide BUN Creatinine Estimated GFR BUN/Creatinine Ratio Glucose Lactate Calcium Total Bilirubin AST ALT Alkaline Phosphatase Total Protein Albumin Globulin Albumin/Globulin Ratio HCG, Quant SARS-CoV-2 (PCR) Monoscreen Negative Group A Strep (PCR) Group B Strep (PCR) Assessment & Plan Assessment & Plan narrative: This is a 31 year old female with a past medical history of substance use on Suboxone, and possible bipolar disorder but not seemingly on current medications who is admitted with severe strep pharyngitis for further observation and airway monitoring. 1. Strep pharyngitis, acute, present on admission - continue unasyn and steroids for swelling. Observe overnight for either improvement or worsening. Call ENT if worsening. - trial diet this evening, advance as tolerated. - if tolerating PO intake and swallowing well can discharge home tomorrow. 2. Substance use - continue home suboxone. 3. history of Bipolar 1 disorder - patient denies current medications other than suboxone. No current psychological distress noted. Code: Full as discussed with the patient, surrogate decision maker was discussed but the patient was unable to make a decision at this time. DVT: Not indicated Dispo: admitted under observation status as her stay is not expected to exceed two midnights. I have utilized all available immediate resources to obtain, update, or review the patient's current medications. COVID-19 COVID-19 status: Negative Time Spent With Patient Critical Care time: I spent a total of [] minutes of critical care time on this patient's care today; this time is exclusive of procedural time. Quality MIPS - Admit I confirm the patient?s Advance Care Plan is present, Code status is documented, Surrogate decision maker is in patient?s record [If Yes, STOP here]: Yes
[2021-12-22] MEDS: DEXAMETHASONE 4 MG/ML VIAL IV (19:00)
[2021-12-23] MEDS: DEXAMETHASONE 4 MG/ML VIAL IV ×3 (00:02→11:59)
[2021-12-23 00:20] VITALS: BP 97/55; PULSE 82; RESP 16; TEMP 36.1; O2SAT 98
[2021-12-23 00:48] LABS: Appearance Urine UA CLEAR; Bilirubin Urine UA NEGATIVE (NEGATIVE); Color Urine UA YELLOW; Glucose Urine UA NEGATIVE (Negative); Ketones Urine UA 1+ (NEGATIVE); Leukocyte Esterase Urine UA NEGATIVE (NEGATIVE); Nitrite Urine UA NEGATIVE (Negative); Occult Blood Urine UA TRACE-INTACT (Negative); Protein Urine UA TRACE (Negative); Specific Gravity Urine UA 1.015 (1.000-1.035); Urobilinogen Urine UA 0.2 E.U./dL (0.2)
[2021-12-23 00:51] LABS: pH Urine UA 6.5 (4.5-8.0)
[2021-12-23 01:06] LABS: Bacteria Urine Occasional (0-1); Culture Indicated Urine Cult Not Indicated; RBC Urine 0-1/HPF (0-5/HPF); Squamous Epithelial Cell Urine 1-5 /HPF (0-5/HPF); WBC Urine None Seen (0-5/HPF)
[2021-12-23 02:00] VITALS: O2SAT 96
[2021-12-23] MEDS: AMPICILLIN/SULBACTAM 3 GM 3 GM in SODIUM CHLORIDE 0.9% 100 ML IV ×2 (02:43→08:31)
[2021-12-23] MEDS: SODIUM CHLORIDE 0.9% 1,000 ML 100 ML IV (02:45)
[2021-12-23 04:40] LABS: Add Manual Diff / Slide Review NO; Basophils Absolute Auto 0 /uL (0-100); Basophils Percent Auto 0.1 % (0-2); Eosinophils Absolute Auto 0 /uL (0-450); Hematocrit 35.7 % (36-46); Hemoglobin 12.5 g/dL (12.0-16.0); Lymphocytes Absolute Auto 800 /uL (1100-4500); Lymphocytes Percent Auto 8.1 % (25-40); Mean Corpuscular Hemoglobin 30.4 PG (26-34); Mean Corpuscular Volume 86.9 fL (80-100); Monocytes Absolute Auto 300 /uL (0-900); Monocytes Percent Auto 2.5 % (3-14); Neutrophils Absolute Auto 9100 /uL (1500-7000); Neutrophils Percent Auto 89.3 % (50-75); Platelet Count 263 X10^3/uL (150-400); Red Cell Distribution Width 11.9 % (11.6-14.8); White Blood Cell Count 10.1 X10^3/uL (4.5-11.0)
[2021-12-23 04:46] LABS: BUN Creatinine Ratio 29.7 (6-22); Blood Urea Nitrogen 11 mg/dL (7-17); Calcium 7.8 mg/dL (8.4-10.2); Carbon Dioxide 25 mmol/L (22-32); Chloride 108 mmol/L (98-107); Estimated Glomerular Filt Rate > 60 mL/min (>60); Glucose 157 mg/dL (70-100); HEMOLYSIS < 15 (0-50); Potassium 3.9 mmol/L (3.4-5.1); Sodium 138 mmol/L (137-145)
[2021-12-23 05:18] VITALS: BP 103/55; PULSE 60; RESP 15; TEMP 36.4; O2SAT 98
[2021-12-23 05:59] VITALS: O2SAT 98
[2021-12-23 07:52] VITALS: BMI 22.8
[2021-12-23] MEDS: BUPRENORPHINE/NALOXONE 8MG/2MG 1 TAB 1.5 TAB SL (08:31)
[2021-12-23 08:54] VITALS: O2SAT 97
[2021-12-23 09:00] VITALS: BP 109/62; PULSE 71; RESP 17; TEMP 36.4; O2SAT 100
--- NOTE | 2021-12-23 10:53 | CM.DANOTE ---
DCP: Case received, EMR reviewed and met with patient. Introduced self and role. Was able to obtain information from patient to enable the completion of DCP assessment. Assessment completed with information currently available. Patient is a 31 year old female who admitted yesterday afternoon to the care of the hospitalist team. PCP: [facility]. Payer: confirmed: Medicaid/[facility]. Patient came to the hospital via private vehicle secondary to having a fever, body aches, and severe sore throat with difficulty swallowing. Patient was having a hard time swallowing. Patient has history of substance abuse and possible bipolar disorder. Patent is on suboxone. Her current diagnosis is strep pharyngitis, acute. Met with patient in her room. She was sitting up in bed. She was able to eat her breakfast. Patient is alert and oriented. She resides in [place] with her significant other. She has two children, one is 8, the other is 9. P: DCP to continue to follow for any needs. Hospitalist indicated that patient could possibly discharge home today. Samara Aguiar RN/Postage Machine Operator Discharge Planning/Care Management CM Discharge Assessment Start: 12/23/21 10:52 Freq: Status: Active Protocol: Document 12/23/21 10:52 (Rec: 12/23/21 10:53 [id number]) Discharge Planning Assessment Assigned Network Field Engineer Samara Aguiar RN/Postage Machine Operator Advance Directives? No History Provided By Patient,Medical Record Prior Living Arrangements Apartment/Condo Household Members family Type of transporation used prior to Drives own vehicle admit Independent with ADL's Yes Is patient alert and oriented? Yes Caregiver for Another Patient has 8 and 9 year old children Barriers to Discharge No Discharge Plan Home Transportation Arrangement Spouse Referrals Initiated None needed Whiteboard Updated in Patient Room with Yes name and ext. # of Network Field Engineer Review Status In Process Next Review Type Continued Stay Review
--- NOTE | 2021-12-23 12:07 | PM.PN.1 ---
Subjective Subjective Interval history: Patient reports feeling well this morning. She denies any issues with eating/swallowing overnight. She requests discharge today as she feels back to baseline health. Exam Vital Signs (past 8 hours): - 12/23/21 05:18 12/23/21 05:59 12/23/21 08:54 Temperature 97.6 F Pulse Rate 60 Respiratory Rate 15 Blood Pressure 103/55 L Pulse Oximetry 98 98 97 12/23/21 09:00 Temperature 97.6 F Pulse Rate 71 Respiratory Rate 17 Blood Pressure 109/62 Pulse Oximetry 100 Oxygen Delivery Method Room Air Oxygen Flow Rate 0 Const Other: Patient laying in bed comfortably upon my entering the room, in no apparent acute distress HENMT Other: Posterior pharynx erythematous, but without exudates Eyes Other: No scleral icterus appreciated Neck Other: No cervical lymphadenopathy appreciated Resp Other: Lungs clear to auscultation bilaterally Cardio Other: RRR, S1 and S2 heart sounds normal, no peripheral edema noted GI Other: Soft, non-distended, non-tender, bowel sounds present Extrem Other: Palpable radial pulses bilaterally Objective Labs Result Diagrams: 12/23/21 04:20 12/23/21 04:20 Labs: Laboratory Results - last 24 hr 12/22/21 12/23/21 12/23/21 18:42 00:15 04:20 WBC 10.1 RBC 4.10 Hgb 12.5 Hct 35.7 L MCV 86.9 MCH 30.4 MCHC 35.0 RDW 11.9 Plt Count 263 Neut % (Auto) 89.3 H Lymph % (Auto) 8.1 L Cochran % (Auto) 2.5 L Eos % (Auto) 0.0 L Baso % (Auto) 0.1 Neut # (Auto) 9100 H Lymph # (Auto) 800 L [place]chran # (Auto) 300 Eos # (Auto) 0 Baso # (Auto) 0 Sodium Potassium Chloride Carbon Dioxide BUN Creatinine Estimated GFR BUN/Creatinine Ratio Glucose Calcium Urine Color Yellow Urine Appearance Clear Urine pH 6.5 Ur Specific [place] 1.015 Urine Protein Trace H Urine Glucose (UA) Negative Urine Ketones 1+ H Urine Occult Blood Trace-intact Urine Nitrate Negative Urine Bilirubin Negative Urine Urobilinogen 0.2 Ur Leukocyte Esterase Negative Urine RBC 0-1/hpf Urine WBC None seen Ur Squamous Epith Cells 1-5 /hpf Urine Bacteria Occasional (0-1) Ur Culture Indicated? Cult not indicated Nasal Screen MRSA (PCR) Negative for mrsa 12/23/21 04:20 WBC RBC Hgb Hct MCV MCH MCHC RDW Plt Count Neut % (Auto) Lymph % (Auto) Cochran % (Auto) Eos % (Auto) Baso % (Auto) Neut # (Auto) Lymph # (Auto) Cochran # (Auto) Eos # (Auto) Baso # (Auto) Sodium 138 Potassium 3.9 Chloride 108 H Carbon Dioxide 25 BUN 11 Creatinine 0.37 L Estimated GFR > 60 BUN/Creatinine Ratio 29.7 H Glucose 157 H Calcium 7.8 L Urine Color Urine Appearance Urine pH Ur Specific [place] Urine Protein Urine Glucose (UA) Urine Ketones Urine Occult Blood Urine Nitrate Urine Bilirubin Urine Urobilinogen Ur Leukocyte Esterase Urine RBC Urine WBC Ur Squamous Epith Cells Urine Bacteria Ur Culture Indicated? Nasal Screen MRSA (PCR) [facility] Medical History Bipolar 1 disorder Surgical History History of tonsillectomy Social History household members: family Smoking Status: Never smoker alcohol intake: never Assessment & Plan Assessment & Plan narrative: This is a 31 year old female with a past medical history of substance use on Suboxone, and possible bipolar disorder but not seemingly on current medications who is admitted with severe strep pharyngitis for further observation and airway monitoring. 1. Strep pharyngitis, acute, present on admission ?- Improved with IV Unasyn and Decadron inpatient? - Will discharge on PO Amoxicillin 1000 mg bid for 9 more days of abx treatment, along with PO Prednisone 40 mg daily 2. Substance use ?- Continue home Suboxone 3. History of bipolar 1 disorder ?- Continue home outpatient follow-up Code: Full Code I have utilized all available immediate resources to obtain, update, or review the patient's current medications. Time Spent With Patient Critical Care time: I spent a total of [] minutes of critical care time on this patient's care today; this time is exclusive of procedural time. Quality MIPS - Admit I confirm the patient?s Advance Care Plan is present, Code status is documented, Surrogate decision maker is in patient?s record [If Yes, STOP here]: Yes
--- NOTE | 2021-12-23 12:15 | P.DS_ITS ---
History of Present Illness History of Present Illness Chief complaint: Can't swallow, body aches Narrative: This is a 31-year-old female with a past medical history of substance abuse on Suboxone, possible bipolar disorder but not apparently on medications who presented with 1-2 days of fever, shaking chills, body aches and severe throat pain with difficulty swallowing, progressively worsening over the past day.?She denies any nausea, or vomiting.?She has no abdominal pain, dysuria, or urinary frequency. She does endorse of prior history of strep pharyngitis and had a tonsillectomy for recurrent infection along time ago. She denies any shortness of breath but has so much difficulty swallowing. In the emergency room, the patient's vital signs were unremarkable.?CT scan was performed which showed generous lingual tonsillar tissue with mild mass effect on the epiglottis without any soft tissue abscess seen.?There is also enlarged bilateral cervical lymphadenopathy. ENT was consulted who recommended Unasyn and steroid therapy for her swelling and observation, they would be happy to consult if surgical management is needed.?Upon arrival to the hospital for the patient is feeling slightly better after doses of antibiotic and steroid in the emergency room.?Rapid strep test was positive, mono testing was negative. COVID- 19 testing was negative. Written by admitting provider. Discharge Providers Provider Date of admission: 12/22/21 12:02 Discharge Date: 12/23/21 Discharge provider: Bobby Jo MD Summary Hospital Course Discharge Diagnosis: This is a 31 year old female with a past medical history of substance use on Suboxone, and possible bipolar disorder but not seemingly on current medications who is admitted with severe strep pharyngitis for further observation and airway monitoring. 1. Strep pharyngitis, acute, present on admission ?- Improved with IV Unasyn and Decadron inpatient? ?- Will discharge on PO Amoxicillin 1000 mg bid for 9 more days of abx treatment, along with PO Prednisone 40 mg daily for 7 days 2. Substance use ?- Continue home Suboxone 3. History of bipolar 1 disorder ?- Continue home outpatient follow-up Exam Vital Signs (past 8 hours): - 12/23/21 05:18 12/23/21 05:59 12/23/21 08:54 Temperature 97.6 F Pulse Rate 60 Respiratory Rate 15 Blood Pressure 103/55 L Pulse Oximetry 98 98 97 12/23/21 09:00 Temperature 97.6 F Pulse Rate 71 Respiratory Rate 17 Blood Pressure 109/62 Pulse Oximetry 100 Oxygen Delivery Method Room Air Oxygen Flow Rate 0 Objective Labs Result Diagrams: 12/23/21 04:20 12/23/21 04:20 Labs: Laboratory Results - last 24 hr 12/22/21 12/23/21 12/23/21 18:42 00:15 04:20 WBC 10.1 RBC 4.10 Hgb 12.5 Hct 35.7 L MCV 86.9 MCH 30.4 MCHC 35.0 RDW 11.9 Plt Count 263 Neut % (Auto) 89.3 H Lymph % (Auto) 8.1 L [place] % (Auto) 2.5 L Eos % (Auto) 0.0 L Baso % (Auto) 0.1 Neut # (Auto) 9100 H Lymph # (Auto) 800 L [place] # (Auto) 300 Eos # (Auto) 0 Baso # (Auto) 0 Sodium Potassium Chloride Carbon Dioxide BUN Creatinine Estimated GFR BUN/Creatinine Ratio Glucose Calcium Urine Color Yellow Urine Appearance Clear Urine pH 6.5 Ur Specific [place] 1.015 Urine Protein Trace H Urine Glucose (UA) Negative Urine Ketones 1+ H Urine Occult Blood Trace-intact Urine Nitrate Negative Urine Bilirubin Negative Urine Urobilinogen 0.2 Ur Leukocyte Esterase Negative Urine RBC 0-1/hpf Urine WBC None seen Ur Squamous Epith Cells 1-5 /hpf Urine Bacteria Occasional (0-1) Ur Culture Indicated? Cult not indicated Nasal Screen MRSA (PCR) Negative for mrsa 12/23/21 04:20 WBC RBC Hgb Hct MCV MCH MCHC RDW Plt Count Neut % (Auto) Lymph % (Auto) [place] % (Auto) Eos % (Auto) Baso % (Auto) Neut # (Auto) Lymph # (Auto) [place] # (Auto) Eos # (Auto) Baso # (Auto) Sodium 138 Potassium 3.9 Chloride 108 H Carbon Dioxide 25 BUN 11 Creatinine 0.37 L Estimated GFR > 60 BUN/Creatinine Ratio 29.7 H Glucose 157 H Calcium 7.8 L Urine Color Urine Appearance Urine pH Ur Specific [place] Urine Protein Urine Glucose (UA) Urine Ketones Urine Occult Blood Urine Nitrate Urine Bilirubin Urine Urobilinogen Ur Leukocyte Esterase Urine RBC Urine WBC Ur Squamous Epith Cells Urine Bacteria Ur Culture Indicated? Nasal Screen MRSA (PCR) [facility] Medical History Bipolar 1 disorder Surgical History History of tonsillectomy Social History household members: family Smoking Status: Never smoker alcohol intake: never Discharge Assessment & Plan Assessment and Plan Assessment: This is a 31 year old female with a past medical history of substance use on Suboxone, and possible bipolar disorder but not seemingly on current medications who is admitted with severe strep pharyngitis for further observation and airway monitoring. 1. Strep pharyngitis, acute, present on admission ?- Improved with IV Unasyn and Decadron inpatient? ?- Will discharge on PO Amoxicillin 1000 mg bid for 9 more days of abx treatment, along with PO Prednisone 40 mg daily for 7 days 2. Substance use ?- Continue home Suboxone 3. History of bipolar 1 disorder ?- Continue home outpatient follow-up Discharge Plan Discharge Plan Patient Disposition: Home Discharge orders & Medications Prescriptions: New amoxicillin-pot clavulanate 1,000-62.5 mg tablet extended release 12 hr 1 tab PO BID 9 Days Qty: 18 0RF prednisone 20 mg tablet 40 mg PO DAILY 7 Days Qty: 14 0RF Continued paroxetine HCl 30 MG tablet 30 mg PO QDAY Qty: 0 0RF lamotrigine [Lamictal XR] 200 MG tablet extended release 24hr 250 mg PO DAILY Qty: 0 0RF multivitamin [Multiple Vitamins] 1 EACH tablet 1 tab PO QDAY Qty: 0 0RF ibuprofen 800 MG tablet 800 mg PO TIDP PRN (Reason: Pain, Moderate) Qty: 0 0RF buprenorphine-naloxone [Suboxone] 4 MG/1 MG film 1 danae Sublingual DAILY Qty: 0 0RF cetirizine 10 mg Tablet 10 mg PO DAILY 0RF paroxetine HCl [Paxil] 10 mg tablet 10 mg PO DAILY Qty: 20 0RF Discharge Data Attending Provider: Nimesh Smiley
--- NOTE | 2021-12-23 12:55 | PC.NURSE ---
Patient discharged to home with two new medications. Rx sent to [facility]. Patient is able to talk and eat normally, says she feels like she 'just has a sore throat' and is advised to follow up with PCP. Patient has no further questions or concerns about discharge.
== END 2021-12-23 13:20 | disposition home or self-care (01) ==
LOC: ED 11:56 → AC 12:04 → ICU 13:33
PROVIDERS: Admitting Provider Internal Medicine; Emergency Provider Emergency Medicine; Referring Provider Emergency Medicine; Visit Provider Internal Medicine
DX: J02.0 Streptococcal pharyngitis (principal); B95.0 Streptococcus, group A, as the cause of diseases classified elsewhere; F11.21 Opioid dependence, in remission; Z20.822 Contact with and (suspected) exposure to COVID-19
CPT/HCPCS: 36415; 70491; 80048; 80053; 81001; 83605; 84702; 85025; 86318; 87040; 87070; 87147; 87635; 87651; 87797; 94760; 96365; 96366; 96375; 96376; 99284; C9803; G0378; J0295; J1100; J1885; Q9967